=== PATIENT | female | born 1930 | race Caucasian/White ===

== ENCOUNTER 2017-11-04 05:40 | Emergency (ER) | payer MEDICARE ==
[2017-11-04 06:11] LABS: BILIRUBIN, URINE NEG (NEG); BLOOD, URINE NEG (NEG); GLUCOSE,URINE 100 mg/dL (NEG); KETONE, URINE NEG (NEG); NITRITE,URINE POS (NEG); URINE LEUKOCYTE ESTERASE NEG (NEG)
[2017-11-04 06:17] LABS: URINE COLOR ORANGE (YELLW/STRAW)
[2017-11-04 06:18] LABS: RBC, URINE 0-3 /hpf (0-3); WBC, URINE 0-2 /hpf (0-5)
[2017-11-04 06:19] LABS: COMMENT (UR) CULTURE INDICATED; CULTURE IF INDICATED CULTURE INDICATED; SQUAMOUS EPITHELIAL CELL URINE > 8 /hpf (0-5)
== END 2017-11-04 07:24 | disposition home or self-care (01) ==
LOC: PHED 05:40
DX: N30.90 Cystitis, unspecified without hematuria (principal); F41.9 Anxiety disorder, unspecified; F32.9 Major depressive disorder, single episode, unspecified; E07.9 Disorder of thyroid, unspecified; F17.200 Nicotine dependence, unspecified, uncomplicated; Z79.82 Long term (current) use of aspirin; Z79.899 Other long term (current) drug therapy; Z88.8 Allergy status to other drugs, medicaments and biological substances; Z88.1 Allergy status to other antibiotic agents
CPT/HCPCS: 81001; 87086; 99283

== ENCOUNTER 2017-11-18 14:06 | Emergency (ER) | payer MEDICARE ==
[~2017-11-18] VITALS: Ht 157.5 cm; Wt 65.4 kg
[~2017-11-18 14:06] MED LIST: ARMO60TA PO; ASPI-516 CHEW; DIFL150T PO; DOXY100C PO; MACR100C2 PO; OMEP40CA2 PO; PARO20TA2 PO; PROM25TA10 PO
[2017-11-18 14:12] VITALS: BP 138/68; PULSE 86; RESP 18; TEMP 97.4; O2SAT 94
[2017-11-18 14:31] LABS: BILIRUBIN, URINE NEG (NEG); BLOOD, URINE NEG (NEG); GLUCOSE,URINE NEG (NEG); KETONE, URINE NEG (NEG); NITRITE,URINE NEG (NEG); PH, URINE 5.5 (5.0-8.5); URINE COLOR YELLOW (YELLW/STRAW); URINE LEUKOCYTE ESTERASE NEG (NEG)
[2017-11-18 14:42] LABS: BACTERIA, URINE FEW /hpf; RBC, URINE 0-3 /hpf (0-3)
--- NOTE | 2017-11-18 15:03 | PD ---
HPI Chief Complaint: Complaint Time Seen by Provider: 14:54 Travel History International Travel<30 days: No Contact w/Intl Traveler<30days: No Traveled to known affect area: No [facility] Past Medical History Asthma: No Blood Disorders: No Anxiety: Yes Depression: Yes Heart Rhythm Problems: No Cancer: No Cardiovascular Problems: Yes High Cholesterol: No Chemotherapy: No Chest Pain: No Congestive Heart Failure: No COPD: No Diminished Hearing: No Endocrine: No Genitourinary: No Immune Disorder: No Implanted Vascular Access Dvce: Yes Musculoskeletal: No Neurologic: No Psychiatric: No Reproductive: Yes Respiratory: No Immunizations Current: Yes (SHINGLES) Radiation Therapy: No Sleep Apnea: No Thyroid Disease: Yes Influenza Vaccination: No ?: Not Menopausal: Yes : 2 Para: 2 Past Surgical History Abdominal Surgery: Yes (EXPL LAP/ BOWEL SX (?)) Appendectomy: Yes Eye Surgery: Yes (DAVID CATARACT EXTRACT) Genitourinary Surgery: Yes (BLADDER MESH X2) Gynecologic Surgery: Yes (SX FOR PROLAPSED UTERUS- 50 YRS AGO) Hysterectomy: Yes Pacemaker: No Other Surgery: Yes (HYSTERECTOMY,BLADDER MESH) Social History Alcohol Use: No Tobacco Use: Yes (1/2 ppd) Substance Use: No Allergies-Medications (Allergen,Severity, Reaction): Coded Allergies: Sulfa (Sulfonamide Antibiotics) (Unverified Allergy, Severe, DIZZY WEAK HIVES, 11/18/17) quinine (Unverified Allergy, Severe, HIVES DIZZY, 11/18/17) alprazolam (Unverified Adverse Reaction, Mild, NAUSEA, 11/18/17) cefuroxime (Unverified Adverse Reaction, Mild, NAUSEA, 11/18/17) ciprofloxacin (Unverified Adverse Reaction, Mild, NAUSEA, 11/18/17) dicyclomine (Unverified Adverse Reaction, Mild, NAUSEA, 11/18/17) mesalamine (Unverified Adverse Reaction, Mild, NAUSEA, 11/18/17) metronidazole (Unverified Adverse Reaction, Mild, NAUSEA, 11/18/17) nitrofurantoin (Unverified Adverse Reaction, Mild, NAUSEA, 11/18/17) pantoprazole (Unverified Adverse Reaction, Mild, NAUSEA, 11/18/17) Reported Meds & Prescriptions Reported Meds & Active Scripts Active Reported Omeprazole 40 Mg Cap 40 Mg PO DAILY [place] Thyroid (Thyroid) 60 Mg Tab 60 Mg PO DAILY Data Data Last Documented VS Vital Signs Date Time Temp Pulse Resp B/P (MAP) Pulse Ox O2 Delivery O2 Flow Rate FiO2 11/18/17 14:12 97.4 86 18 138/68 (91) 94 Room Air Orders Orders Urinalysis - C+S If Indicated (11/18/17 14:14) Labs Laboratory Tests Test 11/18/17 14:25 Urine Collection Type CLEAN CATCH Urine Color YELLOW Urine Turbidity CLEAR Urine pH 5.5 Urine Specific [place] 1.015 Urine Protein NEG mg/dL Urine Glucose (UA) NEG mg/dL Urine Ketones NEG mg/dL Urine Occult Blood NEG Urine Nitrite NEG Urine Bilirubin NEG Urine Urobilinogen 0.2 MG/DL Urine Leukocyte Esterase NEG Urine RBC 0-3 /hpf Urine WBC 3-5 /hpf Urine Squamous Epithelial Cells 6-8 /hpf Urine Bacteria FEW /hpf Microscopic Urinalysis Comment CULT NOT INDICATED Urine Collection Time 14:25 MDM Medical Decision Making Medical Screen Exam Complete: Yes Emergency Medical Condition: Yes Differential Diagnosis Cystitis, pyelonephritis, vaginitis Narrative Course 87-year-old female here concern that she may have a UTI. During her interview she reports being asymptomatic just concerned that her UTI has not cleared. Urine with microscopy today is not suggestive of infection. Culture of her prior urine on the sixth grew out mixed garth probable contaminate. Her vital signs are stable. She is nontoxic appearing. She was reassured that the urine looked favorable today. she is to follow-up with her primary doctor. Diagnosis Primary Impression: Encounter for medical screening examination Referrals: Primary Care Physician Urologist Disposition: 01 DISCHARGE HOME Condition: Stable Jessenia Galindo November 18, 2017 15:02
== END 2017-11-18 15:14 | disposition home or self-care (01) ==
LOC: PHEFT 14:06
DX: Z13.89 Encounter for screening for other disorder (principal)
CPT/HCPCS: 81001; 99283

== ENCOUNTER 2017-12-07 08:49 | Emergency (ER) | payer MEDICARE ==
[~2017-12-07] VITALS: Ht 157.5 cm; Wt 66.1 kg
[~2017-12-07 08:49] MED LIST changes: -ASPI-516 CHEW; -DIFL150T PO; -DOXY100C PO; -MACR100C2 PO; -PARO20TA2 PO; -PROM25TA10 PO
[2017-12-07 08:53] VITALS: BP 135/65; PULSE 86; RESP 18; TEMP 97.3; O2SAT 94
[2017-12-07 09:18] LABS: BILIRUBIN, URINE NEG (NEG); BLOOD, URINE NEG (NEG); GLUCOSE,URINE NEG (NEG); KETONE, URINE NEG (NEG); NITRITE,URINE NEG (NEG); URINE COLOR YELLOW (YELLW/STRAW); URINE LEUKOCYTE ESTERASE NEG (NEG)
[2017-12-07 09:23] LABS: WBC, URINE 0-2 /hpf (0-5)
[2017-12-07] MEDS ORDERED: CEPH-460 PO (10:15)
[2017-12-07] MEDS ORDERED: OXYB5TAB8 PO (10:15)
--- NOTE | 2017-12-07 10:56 | PD ---
HPI Chief Complaint: Complaint Time Seen by Provider: 09:02 Travel History International Travel<30 days: No Contact w/Intl Traveler<30days: No Traveled to known affect area: No History of Present Illness HPI This 87-year-old female is complaining of inability to void. She has been seen in the emergency department on several occasions with urinary tract infections. She has multiple adverse reactions to different antibiotics. She is most recently been seeing Dr. Munguia and Dr. Rogers and apparently there is concerned that his symptoms could be related to bladder mesh that she had placed 15 years ago. This morning she feels like she is unable to void. She was dribbling through the night. This morning she did actually board fairly well after these episodes. She went to Dr. Rogers's office and was told to come here for possible catheter. 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) Genitourinary: No Immune Disorder: No Implanted Vascular Access Dvce: Yes Musculoskeletal: No Neurologic: No Psychiatric: No Reproductive: Yes Respiratory: No Immunizations Current: Yes (SHINGLES) Radiation Therapy: No Sleep Apnea: No Thyroid Disease: Yes Tetanus Vaccination: Unknown Influenza Vaccination: No ?: Not Menopausal: Yes : 2 Para: 2 Past Surgical History Abdominal Surgery: Yes (EXPL LAP/ BOWEL SX (?)) Appendectomy: Yes Eye Surgery: Yes (DAVID CATARACT EXTRACT) Genitourinary Surgery: Yes (BLADDER MESH X2) Gynecologic Surgery: Yes (SX FOR PROLAPSED UTERUS- 50 YRS AGO) Hysterectomy: Yes Pacemaker: No Other Surgery: Yes (HYSTERECTOMY,BLADDER MESH) Social History Alcohol Use: No Tobacco Use: Yes (1/2 PPD) Substance Use: No Allergies-Medications (Allergen,Severity, Reaction): Coded Allergies: Sulfa (Sulfonamide Antibiotics) (Unverified Allergy, Severe, DIZZY WEAK HIVES, 12/07/17) quinine (Unverified Allergy, Severe, HIVES DIZZY, 12/07/17) tetracycline (Verified Allergy, Unknown, CAN NOT REMEMBER, 12/07/17) alprazolam (Unverified Adverse Reaction, Mild, NAUSEA, 12/07/17) cefuroxime (Unverified Adverse Reaction, Mild, NAUSEA, 12/07/17) ciprofloxacin (Unverified Adverse Reaction, Mild, NAUSEA, 12/07/17) dicyclomine (Unverified Adverse Reaction, Mild, NAUSEA, 12/07/17) mesalamine (Unverified Adverse Reaction, Mild, NAUSEA, 12/07/17) metronidazole (Unverified Adverse Reaction, Mild, NAUSEA, 12/07/17) nitrofurantoin (Unverified Adverse Reaction, Mild, NAUSEA, 12/07/17) pantoprazole (Unverified Adverse Reaction, Mild, NAUSEA, 12/07/17) Reported Meds & Prescriptions Reported Meds & Active Scripts Active Reported Ditropan (Oxybutynin Chloride) 5 Mg Tab 5 Mg PO Q12HR Keflex (Cephalexin) 500 Mg Cap 500 Mg PO Q12H Omeprazole 40 Mg Cap 40 Mg PO DAILY [place] Thyroid (Thyroid) 60 Mg Tab 60 Mg PO DAILY Review of Systems General / Constitutional: No: Fever, Chills Gastrointestinal: No: Vomiting, Diarrhea Genitourinary: Positive: Urgency, Frequency, Dysuria Hematologic/Lymphatic: No: Easy Bruising Physical Exam Narrative GENERAL: [-] SKIN: Focused skin assessment warm/dry. HEAD: Atraumatic. Normocephalic. EYES: Pupils equal and round. No scleral icterus. No injection or drainage. ENT: No nasal bleeding or discharge. Mucous membranes pink and moist. NECK: Trachea midline. No JVD. GASTROINTESTINAL: Abdomen soft, non-tender, nondistended. Hepatic and splenic margins not palpable. Mild suprapubic tenderness MUSCULOSKELETAL: No obvious deformities. No clubbing. No cyanosis. No edema. NEUROLOGICAL: Awake and alert. No obvious cranial nerve deficits. Motor grossly within normal limits. Normal speech. PSYCHIATRIC: Appropriate mood and affect; insight and judgment normal. Data Data Last Documented VS Vital Signs Date Time Temp Pulse Resp B/P (MAP) Pulse Ox O2 Delivery O2 Flow Rate FiO2 12/07/17 08:53 97.3 86 18 135/65 (88) 94 Orders Orders Urinalysis - C+S If Indicated (12/07/17 08:52) Urinary Catheter Insert/Apply (12/07/17 09:32) Labs Laboratory Tests Test 12/07/17 09:00 Urine Collection Type CLEAN CATCH Urine Color YELLOW Urine Turbidity CLEAR Urine pH 7.0 Urine Specific [place] 1.010 Urine Protein NEG mg/dL Urine Glucose (UA) NEG mg/dL Urine Ketones NEG mg/dL Urine Occult Blood NEG Urine Nitrite NEG Urine Bilirubin NEG Urine Urobilinogen 0.2 MG/DL Urine Leukocyte Esterase NEG Urine WBC 0-2 /hpf Urine Squamous Epithelial Cells 6-8 /hpf Microscopic Urinalysis Comment CULT NOT INDICATED MDM Medical Decision Making Medical Screen Exam Complete: Yes Emergency Medical Condition: Yes Medical Record Reviewed: Yes Differential Diagnosis Differential includes urinary retention, UTI Narrative Course The catheter was inserted and 400 cc of clear urine obtained. Urinalysis is negative for infection. I was going to call Dr. Rogers to see if he wanted to leave the catheter in but the patient is quite insistent that we take it out. It will be removed and she will be released Diagnosis Primary Impression: Urinary retention Additional Instructions: Return if unable to void Disposition: 01 DISCHARGE HOME Condition: Stable Cosme Rebollar MD Dec 07, 2017 10:56
== END 2017-12-07 11:04 | disposition home or self-care (01) ==
LOC: PHED 08:49
DX: R33.9 Retention of urine, unspecified (principal); E11.9 Type 2 diabetes mellitus without complications; F32.9 Major depressive disorder, single episode, unspecified; F41.9 Anxiety disorder, unspecified; E07.9 Disorder of thyroid, unspecified; F17.200 Nicotine dependence, unspecified, uncomplicated; Z79.82 Long term (current) use of aspirin
CPT/HCPCS: 51702; 81001